=== PATIENT | female | born 1985 | race Caucasian/White ===

== ENCOUNTER 2022-12-04 09:33 | Emergency (ER) | payer MEDICAID ==
[~2022-12-04] VITALS: Ht 160 cm; Wt 50.0 kg
[2022-12-04 09:41] VITALS: BP 100/72; PULSE 119; TEMP 97.8; O2SAT 99
[2022-12-04 10:49] LABS: URINE HCG NEGATIVE (NEG)
[2022-12-04] MEDS ORDERED: ketorolac trometh inj. 60 MG/2 ML VIAL IM ONE (10:50)
[2022-12-04 10:52] LABS: BILIRUBIN,URINE NEGATIVE (Neg); CLARITY,URINE CLOUDY (Clear); COLOR,URINE YELLOW (Yellow); GLUCOSE, URINE 250 mg/dl (Neg); KETONES,URINE NEGATIVE (Neg); LEUKOCYTE ESTERASE ,URINE SMALL (Neg); NITRITES, URINE POSITIVE (Neg); OCCULT BLOOD,URINE LARGE (Neg); PROTEIN,URINE 100 mg/dl (Neg)
[2022-12-04 11:04] LABS: UA COLLECTION TYPE CLN CATCH MIDSTREAM
[2022-12-04 11:05] LABS: BACTERIA,URINE 4+ /HPF (Neg)
[2022-12-04 11:06] LABS: RBC,URINE 20-50 /HPF (0-2); SQUAMOUS EPITHELIAL CELL,UR MODERATE /LPF (FEW); TRANSITIONAL EPI CELLS,URINE MODERATE /HPF; WBC,URINE TNTC /HPF (0-4)
[2022-12-04 11:36] LABS: BASOPHILS # (AUTO) 0.1 X10'3 (0-0.2); BASOPHILS % (AUTO) 0.4 % (0-1); EOSINOPHILS # (AUTO) 0.1 X10'3 (0-0.9); EOSINOPHILS % (AUTO) 0.3 % (0-6); HEMATOCRIT 40.7 % (35.0-45.0); HEMOGLOBIN 13.4 g/dl (12.0-16.0); LYMPHOCYTES # (AUTO) 1.9 X10'3 (1.1-4.8); LYMPHOCYTES % (AUTO) 12.2 % (21-51); MEAN CORPUSCULAR HEMOGLOBIN 30.5 PG (27.0-31.0); MEAN CORPUSCULAR HGB CONC 32.9 g/dL (33.0-36.5); MEAN CORPUSCULAR VOLUME 92.4 FL (78-98); MEAN PLATELET VOLUME 7.8 FL (7.4-10.4); MONOCYTES # (AUTO) 1.6 X10'3 (0-0.9); MONOCYTES % (AUTO) 10.3 % (2-12); NEUTROPHILS % (AUTO) 76.8 % (42-75); PLATELET COUNT 329 X10'3 (140-440); RED BLOOD COUNT 4.41 X10'6 (4.20-5.60); RED CELL DISTRIBUTION WIDTH 13.7 % (11.5-14.5); WHITE BLOOD COUNT 15.6 X10'3 (4.5-11.0)
[2022-12-04 11:51] VITALS: RESP 16
[2022-12-04 12:07] LABS: ALANINE AMINOTRANSFERASE 15 U/L (12-78); ALBUMIN 3.4 G/DL (3.4-5.0); ALBUMIN/GLOBULIN RATIO 0.9 (1.1-1.5); ALKALINE PHOSPHATASE 88 IU/L (46-116); ANION GAP 5 (8-16); ASPARTATE AMINO TRANSFERASE 12 U/L (10-37); BILIRUBIN,TOTAL 0.5 MG/DL (0.1-1.0); BLOOD UREA NITROGEN 6 MG/DL (7-18); BUN/CREATININE RATIO 6.4 (10.0-20.0); CALCIUM 8.8 MG/DL (8.5-10.1); CHLORIDE 102 MMOL/L (99-107); CREATININE 0.94 MG/DL (0.40-0.90); GLUCOSE 90 MG/DL (70-104); POTASSIUM 3.6 MMOL/L (3.5-5.1); SODIUM 134 MMOL/L (135-145); TOTAL CARBON DIOXIDE 26.8 MMOL/L (24-32); TOTAL PROTEIN 7.1 G/DL (6.4-8.2); eCRCL 65 ML/MIN; eGFR 67 ML/MIN
[2022-12-04] MEDS ORDERED: CEFD300C3 PO (12:13)
--- NOTE | 2022-12-07 09:00 | NUR ---
URINE CULTURE CAME BACK WITH RESISTANCE TO CEFDINIR. DR. CALDWELL ORDERED AUGMENTIN 875 MG BID X 7 DAYS. [facility] CALLED AND NEW MED ORDER GIVEN TO PHARMACIST. MESSAGE LEFT ON PATIENT CELL PHONE TO CALL BACK FOR INFORMATION ABOUT MEDICATION CHANGE.
== END 2022-12-04 12:29 | disposition home or self-care (01) ==
LOC: ER 09:33
DX: N39.0 Urinary tract infection, site not specified (principal); F17.200 Nicotine dependence, unspecified, uncomplicated; Z79.899 Other long term (current) drug therapy
CPT/HCPCS: 36415; 80053; 81001; 81025; 85025; 87088; 96372; 99283; J1885; 87077; 87186